=== PATIENT | female | born 1965 | race Caucasian/White ===

== ENCOUNTER 2022-04-22 07:52 | Outpatient (REF) | payer OTHER, SELFPAY ==
[2022-04-22 12:24] LABS: Alanine Aminotransferase 19 U/L (0-31); Anion Gap 14 (12-20); Aspartate Amino Transferase 20 U/L (5-31); Blood Urea Nitrogen 17 mg/dL (9-16); Calcium 9.8 mg/dL (8.4-10.2); Carbon Dioxide 27 mmol/L (22-29); Chloride 103 mmol/L (96-108); Cholesterol 173 mg/dL; Estimated Glomerular Filt Rate > 60; Glucose Fasting 95 mg/dL (60-99); HDL Cholesterol 67 mg/dL; LDL Cholesterol Calculated 92 mg/dl; Sodium 140 mmol/L (135-145); Triglycerides 74 mg/dL
[2022-04-22 12:27] LABS: Vitamin D 25-OH Total 54.7 ng/mL (>30)
== END 2022-04-22 07:53 | disposition home or self-care (01) ==
LOC: HO.HMGCLDS 07:52
PROVIDERS: PCP Internal Medicine; Visit Provider Internal Medicine
DX: G25.81 Restless legs syndrome (principal); I10 Essential (primary) hypertension; N95.9 Unspecified menopausal and perimenopausal disorder; L40.50 Arthropathic psoriasis, unspecified
CPT/HCPCS: 36415; 80048; 80061; 82306; 84450; 84460

== ENCOUNTER 2023-04-15 08:43 | Outpatient (AMB) | payer OTHER, SELFPAY ==
--- NOTE | 2023-04-15 09:01 | A.OFFPC_ITS ---
Vital Signs 04/15/23 09:03 Height 5 ft 3 in Weight 153 lb 2 oz BMI 27.1 BP 130/82 Blood Pressure Location Lt brachial Position Sitting Pulse 71 Pulse Source Pulse Oximeter Pulse Oximetry (%) 97 Oxygen Delivery Method Room Air Intake Visit Reasons: Medication Follow Up Intake Note: pt is here to follow for her Lisinopril/htcz and her ropinirole pt would like to get her flu vaccine today Allergies No Known Allergies Allergy (Verified 04/16/23 02:37) Medication List - Last Reconciled 04/15/23 by Etelvina Waller MD adalimumab (Humira Pen) mg subcut cholecalciferol (vitamin D3) 50 mcg PO DAILY escitalopram oxalate 20 mg PO DAILY lisinopril-hydrochlorothiazide 20-12.5 mg 1 tab PO DAILY lorazepam mg PO meloxicam 7.5 mg PO BID multivitamin 1 tab PO DAILY ropinirole 4 mg PO BEDTIME Tobacco use date assessed: 04/15/23 Dental Screening Dental Screen Date: 04/15/23 Did you have a dental visit in the last 12 months?: Yes Did you have a dental problem in the last 6 months where you did not have access to dental care?: No Was dental information given to patient?: Patient has dentist HPI Medication Follow Up HPI Details 57-year-old lady here today for follow-u p on her hypertension and restless leg syndrome, currently controlled with lisinopril-HCTZ and ropinirole . She now sees a new children's service supervisor for her psoriasis and recently started on Humira from [employer], the latter not covered by insurance. She has been referred by her health coordinator, Dr. Vincent to a crew leader gluing at [facility], for evaluation of chronic pain in both feet mainly around her big toes, worse with walking. 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 She declined getting surgery at this point time, and would like to explore other treatment options. [facility] Medical History (Updated 04/15/23 @ 10:06 by Etelvina Waller MD) Pes planus of both feet Arthritis of first MTP joint Pain in joints of both feet Depression, major, in remission Uterine fibroid Polyarthralgia Osteoarthritis Rosacea Restless leg syndrome Essential hypertension Arthritis with psoriasis Surgical History H/O colonoscopy Status post embolization of uterine artery History of salpingectomy Family History Father HTN (hypertension) Myocardial infarction Stroke CVD (cardiovascular disease) Mother Depression HTN (hypertension) Hyperlipidemia Mental health disorder Sister HTN (hypertension) Depression Maternal Grandmother Diabetes mellitus Maternal Grandmother Cancer of prostate Paternal Grandfather Cancer of prostate Paternal Aunt CHF (congestive heart failure) Daughter No problems noted. Social History Housing: Apartment Alcohol intake: current Patient Tobacco Use Status: Former Tobacco user Years Smoked: 3 yrs e-Cigarette/Vaping Use: Never Used Current occupational status: employed Cognitive needs: No Hearing needs: No Vision needs: No Questionnaire PHQ-9 Over the last 2 weeks, how often have you been bothered by any of the following problems? 1. Little interest or pleasure in doing things: more than half the days 2. Feeling down, depressed, or hopeless: more than half the days 3. Trouble falling or staying asleep, or sleeping too much: more than half the days 4. Feeling tired or having little energy: more than half the days 5. Poor appetite or overeating: more than half the days 6. Feeling bad about yourself - or that you are a failure or have let yourself or your family down: more than half the days 7. Trouble concentrating on things, such as reading the newspaper or watching television: several days 8. Moving or speaking so slowly that other people could have noticed. Or the opposite - being so fidgety or restless that you have been moving around a lot more than usual: several days 9. 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 Ignacio Lee, Jolene Landon, Jace Wakefield and colleagues, with an educational jim from [employer]. Thrive Questionnaire Date Thrive assessed: 04/15/23 I am a: Patient What is your living situation today?: I have a steady place to live Within the past 12 months, did the food you bought not last and you didn't have the money to get more?: Never true Within the past 12 months, did you worry whether your food would run out before you got money to buy more?: Never true Do you have trouble paying for medicines?: No Do you have trouble getting transportation to medical appointments?: No Do you have trouble paying your heating and electricity bill?: No Do you have trouble taking care of your child, family member or friend?: No Do you have trouble with day-to-day activities such as bathing, preparing meals, shopping, managing finances, etc.?: No Are you currently unemployed and looking for a job?: No Are you interested in more education?: No AUDIT C Alcohol Use Questionnaire (AUDIT-C) 1. How often do you have a drink containing alcohol?: 2-4 times a month 2. How many drinks containing alcohol do you have on a typical day when you are drinking?: 1 or 2 3. How often do you have six or more drinks on one occasion?: Never Total Score: 2 BLESSING-7 AMB Questionnaire BLESSING-7 Date BLESSING - 7 assessed: 04/15/23 Feeling nervous, anxious, or on edge: 2 = More than half the days Not being able to stop or control worryin = More than half the days Worrying too much about different things: 2 = More than half the days Trouble relaxin = Nearly every day Being so restless that it is hard to sit still: 1 = Several days Becoming easily annoyed or irritable: 1 = Several days Feeling afraid as if something awful might happen: 2 = More than half the days Total BLESSING-7 score (0-4 normal; 5-9 mild; 10-14 moderate; 15-21 severe): 13 Source: Developed by Drs. Ignacio Lee, Jolene Landon, Jace Wakefield and colleagues, with an educational jim from [employer]. BLESSING-7 Assessment Billing BLESSING-7 Assessment Tool: BLESSING-7 Assessment 05871 Review of Systems Const Denies fever(s) Eyes Denies change in vision ENT Reports no additional complaints Card Denies chest pain, Denies lightheadedness and Denies dyspnea Resp Denies cough, Denies dyspnea and Denies wheezing GI Denies abdominal pain, Denies change in bowel habits and Denies heartburn Denies urinary frequency, Denies dysuria and Denies urinary urgency Musc Reports as per HPI Skin/Breast Denies rash Neuro Reports no additional complaints Psych Reports as per HPI Suhas/Lymph Denies easy bruising Aller/Immun Denies seasonal rhinorrhea and Denies wheezing Physical exam (Primary Care) Vital Signs: Last Vital Signs Pulse 71 04/15/23 09:03 BP 130/82 04/15/23 09:03 Pulse Ox 97 04/15/23 09:03 Oxygen Delivery Method Room Air 04/15/23 09:03 BMI result Body Mass Index 27.1 Tobacco/Smoking Status: Tobacco use Status Tobacco use date assessed 04/15/23 04/15/23 09:10 Patient Tobacco Use Status Former Tobacco user 04/15/23 09:02 e-Cigarette/Vaping Use Never Used 04/15/23 09:02 PHQ-9: PHQ-9 Score PHQ-9: Total score 14 04/15/23 10:14 Depression Screening Interpretation: Positive Depression Screening Follow-up: Existing condition, 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 (Currently sees a psychiatrist and her therapist regularly) Thrive Assessment: Date of Thrive Assessment Date Thrive assessed 04/15/23 04/15/23 09:16 Const Other: Alert oriented x3, in no acute cardiorespiratory distress, normal gait Orientation/consciousness: patient oriented x3 HENMT Head: Yes normocephalic Ears: external ears normal, TM's normal bilaterally and EAC's normal General nose exam: Normal external nose present Face and sinus: Yes face symmetric Mouth: Normal oral and palatal mucosa present, oropharynx normal and moist mucous membranes Eyes General: appearance normal, both eyes and all related structures Neck Neck: Yes full ROM, Yes no lymphadenopathy and Yes supple Resp Effort & Inspection: normal respiratory effort and able to speak in complete sentences Auscultation: clear to auscultation bilaterally Cardio Rate: regular rate Rhythm: regular rhythm Heart sounds: S1 normal heart sound present and S2 normal heart sound present GI Inspection: Yes normal to inspection Palpation (GI): Soft to palpation, nontender, no guarding and no masses Auscultation: normal bowel sounds General: Yes no CVA tenderness Back/Spine/Pelvis Back: no CVA tenderness and No back tenderness Skin General skin exam: no rashes or lesions noted Neuro General: patient oriented x3, gait normal, moves all extremities, Normal light touch and pain sensation and no focal motor deficits Extrem Other: Full range of motion in all joints, no gross bone deformity or joint swelling seen slight tenderness on palpation medial malleolus and on dorsal aspect of right foot, 2+ dorsalis pedis pulse and posterior tibial pulse bilaterally, bilateral pes planus General: Yes no clubbing, cyanosis or edema, Yes no calf tenderness and Yes normal gait Psych Appearance: grossly normal and well kempt Mental Status: mental status grossly normal Speech and movement: Normal speech and movement present Attitude: cooperative Office Procedures Flu Questionnaire Does the patient have a severe egg allergy?: No Does the patient have severe life threatening allergies?: No Does the patient have a fever or illness today?: No Has the patient ever had Guillain-[place] Syndrome?: No Has the patient ever had any past reaction to a flu shot?: No Immunizations flu vacc [id number] 6mos up(PF) 60 mcg(15 mcgx4)/0.5 mL IM syringe Performing Provider: Etelvina Waller MD [place] [facility] Administered by: Jamee Sanchez CMA on 04/15/23 10:14 Dose Route Admin Location Dispensed Lot Number Expiration Date [facility] Rehab Director Occupational Therapist 0.5 mL IM Left Deltoid 0.5 mL [id number] 12/21/23 97269-591-09 [employer] VIS Given Date VIS Provided VIS Publication Date 04/15/23 Single Vaccine 21 Eligibility Eligibility Date Funding Source Not [facility] Eligible 04/15/23 Private Assessment and Plan Assessment & Plan (1) Essential hypertension: Code(s): I10 - Essential (primary) hypertension Plan: Blood pressure at goal of less than 130/80. Continue with syncopal-HCTZ 20-12.5 mg tablet taken daily Reinforced importance of following a low sodium diet, getting regular exercise, and lowering stress levels. (2) Restless leg syndrome: Code(s): G25.81 - Restless legs syndrome Plan: Controlled with ropinirole 4 mg at bedtime, refill sent (3) Arthritis of first MTP joint: Code(s): M19.079 - Primary osteoarthritis, unspecified ankle and foot Plan: Will refer to physical therapy for further evaluation and management (4) Pes planus of both feet: Code(s): M21.41 - Flat foot [pes planus] (acquired), right foot; M21.42 - Flat foot [pes planus] (acquired), left foot Plan: Advised to keep appointment to get custom orthotics fitted for both feet. (5) Arthritis with psoriasis: Code(s): L40.50 - Arthropathic psoriasis, unspecified Plan: Sees Rheumatology, Dr. Vincent, who recently started her on Humira Orders: Orders Influenza [id number] Immunization 04/15/23 Z23 - Encounter for immunization PT Evaluation and Treatment 04/15/23 M19.079 - Primary osteoarthritis, unspecified ankle and foot, M21.41 - Flat foot [pes planus] (acquired), right foot, M21.42 - Flat foot [pes planus] (acquired), left foot Medications: Refilled lisinopril-hydrochlorothiazide 20-12.5 mg Schedule next PCP appt for future refills 1 tab PO DAILY 90 tabs 4RF ropinirole 4 mg PO BEDTIME 90 tabs 3RF Coding Level of Care Code Est Pt Level 4 (32270) Diagnoses Essential hypertension I10 Restless leg syndrome G25.81 Arthritis of first MTP joint M19.079 Pes planus of both feet M21.41; M21.42 Arthritis with psoriasis L40.50 Additional Codes BLESSING-7 Assessment Billing - BLESSING-7 Assessment Tool: BLESSING-7 Assessment 33587 ([id number])
[2023-04-15 09:03] VITALS: BP 130/82; PULSE 71; O2SAT 97; BMI 27.1
== END 2023-04-15 10:35 | disposition home or self-care (01) ==
PROVIDERS: PCP Internal Medicine; Visit Provider Internal Medicine
DX: Z23 Encounter for immunization (principal)
CPT/HCPCS: 90471; 90686; 99214

== ENCOUNTER 2023-07-15 12:04 | Outpatient (AMB) | payer OTHER, SELFPAY ==
--- NOTE | 2023-07-15 12:07 | MHC.OFFWIV ---
Intake Vital Signs 07/15/23 12:08 Height 5 ft 3 in BP 122/80 Blood Pressure Location Lt brachial Position Sitting Pulse 67 Pulse Source Pulse Oximeter Temp 97.9 F Temp Source Oral Pulse Oximetry (%) 98 Oxygen Delivery Method Room Air Intake Visit Reasons: EP RT injured knee lifting Intake Note: pt is here for c.o right injured knee, due to lifting Patient Tobacco Use Status: Former Tobacco user Allergies No Known Allergies Allergy (Verified 07/15/23 12:11) Do you need a note to return to daycare/school/sports/work: Yes HPI HPI Comments History of Present Illness Details Patient is a 57-year-old female in today for a sick visit. She has a past medical history significant for psoriatic arthritis, osteoarthritis, and essential hypertension. Patient is a chief complaint of right knee pain times 13 days. She states that she was carrying groceries up in down the stairs and noticed the pain developed after that. She denies cracking or popping. She has taken meloxicam with some relief. She states the pain has gotten slightly better since the incident 13 days ago. She denies tingling, numbness, chest pain, shortness a breath. [facility] Medical History Pes planus of both feet Arthritis of first MTP joint Pain in joints of both feet Depression, major, in remission Uterine fibroid Polyarthralgia Osteoarthritis Rosacea Restless leg syndrome Essential hypertension Arthritis with psoriasis Surgical History H/O colonoscopy Status post embolization of uterine artery History of salpingectomy Family History Father HTN (hypertension) Myocardial infarction Stroke CVD (cardiovascular disease) Mother Depression HTN (hypertension) Hyperlipidemia Mental health disorder Sister HTN (hypertension) Depression Maternal Grandmother Diabetes mellitus Maternal Grandmother Cancer of prostate Paternal Grandfather Cancer of prostate Paternal Aunt CHF (congestive heart failure) Daughter No problems noted. Social History Housing: Apartment Alcohol intake: current Patient Tobacco Use Status: Former Tobacco user Years Smoked: 3 yrs e-Cigarette/Vaping Use: Never Used Current occupational status: employed Cognitive needs: No Hearing needs: No Vision needs: No Review of Systems Const All systems reviewed & are unremarkable except as noted in HPI and below Musc Reports arthralgias (Right knee) Physical Exam Vital Signs: Last Vital Signs Temp 97.9 F 07/15/23 12:08 Pulse 67 07/15/23 12:08 BP 122/80 07/15/23 12:08 Pulse Ox 98 07/15/23 12:08 Oxygen Delivery Method Room Air 07/15/23 12:08 No vital signs reviewed stable Const Other: CVS: Normal heart rate and rhythm.? Pulses normal.? Respiratory: No respiratory distress.? Breath sounds normal.? Skin: Skin warm and dry.? Normal skin color.? Normal skin turgor.? Extremities: No lower extremity edema.? No calf ttp. 5/5 strength to bilateral upper and lower extremities. No cracking or crepitus. Some point tenderness to the medial and lateral aspect of the knee. No Obvious deformity. Negative sorin test. Back: No midline tenderness, no C-spine tenderness, full range of motion, no CVA tenderness bilaterally Neuro: Oriented X 3.? No motor deficit.? No sensory deficit. CN 2-12 intact Results Reviewed Results Reviewed: Will call patient with x-ray results. Assessment & Plan Assessment & Plan (1) Right knee pain: Code(s): M25.561 - Pain in right knee Qualifiers: Chronicity: acute Qualified Code(s): M25.561 - Pain in right knee Plan: Patient had in office x-ray initial reading negative for fracture. Patient will be fit with supportive knee device in office today. Patient has been advised to rest the affected limb, she can take Tylenol in addition to the meloxicam she is already prescribed. She has been educated on signs of worsening symptoms when to report back to the walk-in or when to report to the ER. Plan Take your medications as prescribed. If you were prescribed antibiotics today, it is important that you take your medication to their entirety, do not skip any doses, do not finish them early. Follow-up with your primary care provider this week. Return to the emergency department with new or worsening symptoms. Such as fevers, chills, chest pain, shortness of breath, nausea, vomiting, dizziness, headache, vision changes, lethargy In case of emergency call 911 Patient Instructions: Follow-up with PCP Coding Level of Care Code Est Pt Level 3 (68092) Diagnoses Acute pain of right knee M25.561 Chronicity: acute Time Spent (min) 35
[2023-07-15 12:08] VITALS: BP 122/80; PULSE 67; TEMP 36.6; O2SAT 98
== END 2023-07-15 13:31 | disposition home or self-care (01) ==
PROVIDERS: PCP Internal Medicine; Visit Provider Nurse Practitioner Primary Care
DX: M25.561 Pain in right knee (principal)
CPT/HCPCS: 99213

== ENCOUNTER 2023-07-15 12:32 | Outpatient (REF) | payer OTHER, SELFPAY ==
--- NOTE | ~2023-07-15 | XR_ITS ---
EXAMINATION: XR KNEE, RIGHT CLINICAL INFORMATION: Reason for Exam M25.561 - Pain in right knee COMPARISON: None TECHNIQUE: 4 views of the knee FINDINGS: No acute fracture or dislocation. Joint spaces are maintained. No joint effusion. Soft tissues are unremarkable. XR/XR knee RT 4V IMPRESSION: * No acute osseous abnormality. * Joint spaces are maintained without significant degenerative change.
== END 2023-07-15 12:33 | disposition home or self-care (01) ==
LOC: HO.HMGCX 12:32
PROVIDERS: PCP Internal Medicine; Visit Provider Nurse Practitioner Primary Care
DX: M25.561 Pain in right knee (principal)
CPT/HCPCS: 73564

== ENCOUNTER 2024-01-27 09:15 | Outpatient (AMB) | payer OTHER, SELFPAY ==
--- NOTE | 2024-01-27 09:19 | A.OFFPC_ITS ---
Vital Signs 01/27/24 09:45 Height 5 ft 3 in Weight 162 lb BMI 28.7 BP 134/70 Blood Pressure Location Lt brachial Position Sitting Pulse 59 Pulse Source Pulse Oximeter Pulse Oximetry (%) 97 Oxygen Delivery Method Room Air Intake Visit Reasons: PE jose 08/12 Intake Note: Pt is here today for her PE: mammogram 01/02/22, papsmear 02/01/22, colonoscopy 05/27/18 Allergies No Known Allergies Allergy (Verified 01/27/24 10:12) Medication List - Last Reconciled 01/27/24 by Etelvina Waller MD cholecalciferol (vitamin D3) 50 mcg PO DAILY escitalopram oxalate mg PO DAILY lisinopril-hydrochlorothiazide 20-12.5 mg 1 tab PO DAILY meloxicam 7.5 mg PO BID multivitamin 1 tab PO DAILY ropinirole 4 mg PO BEDTIME ustekinumab (Stelara) mg subcut Tobacco use date assessed: 01/27/24 Dental Screening Dental Screen Date: 01/27/24 Did you have a dental visit in the last 12 months?: Yes Did you have a dental problem in the last 6 months where you did not have access to dental care?: No Was dental information given to patient?: Patient has dentist HPI PE jose 08/12 HPI Details 58-year-old lady here today for her phys ical exam.. She is up-to-date with her breast cancer screening, done this year at [facility], up-to-date with her cervical cancer screws weaning, done this year at [facility] as well, and is up-to-date with her colon cancer screening with last colonoscopy done 05/27/18 with removal only of hyperplastic polyp, repeat due again in 2027. She has psoriasis and osteoarthritis currently followed by her rheumatology and on Stelara and meloxicam which has been helping. She takes ropinirole for restless leg syndrome which also has been helping and takes lisinopril hydrochlorothiazide for her hypertension, with blood pressure well controlled. She currently sees Psychiatry and therapist at [facility] for her depression currently stable and controlled on escitalopram 10 mg daily [facility] Medical History Pes planus of both feet Arthritis of first MTP joint Pain in joints of both feet Depression, major, in remission Uterine fibroid Polyarthralgia Osteoarthritis Rosacea Restless leg syndrome Essential hypertension Arthritis with psoriasis Surgical History H/O colonoscopy Status post embolization of uterine artery History of salpingectomy Family History Father HTN (hypertension) Myocardial infarction Stroke CVD (cardiovascular disease) Mother Depression HTN (hypertension) Hyperlipidemia Mental health disorder Sister HTN (hypertension) Depression Maternal Grandmother Diabetes mellitus Maternal Grandmother Cancer of prostate Paternal Grandfather Cancer of prostate Paternal Aunt CHF (congestive heart failure) Daughter No problems noted. Social History Housing: Apartment Alcohol intake: current Patient Tobacco Use Status: Former Tobacco user Years Smoked: 3 yrs e-Cigarette/Vaping Use: Never Used Current occupational status: employed Cognitive needs: No Hearing needs: No Vision needs: No Female Reproductive History Menstrual Menopause type: natural Questionnaire PHQ-9 Over the last 2 weeks, how often have you been bothered by any of the following problems? 1. Little interest or pleasure in doing things: not at all 2. Feeling down, depressed, or hopeless: not at all 3. Trouble falling or staying asleep, or sleeping too much: not at all 4. Feeling tired or having little energy: not at all 5. Poor appetite or overeating: not at all 6. Feeling bad about yourself - or that you are a failure or have let yourself or your family down: not at all 7. Trouble concentrating on things, such as reading the newspaper or watching television: not at all 8. Moving or speaking so slowly that other people could have noticed. Or the opposite - being so fidgety or restless that you have been moving around a lot more than usual: not at all 9. Thoughts that you would be better off or of hurting yourself in some way: not at all Total score: 0 Depression Screening Interpretation: Negative (Controlled on escitalopram, followed by Psychiatry at [facility]) Depression Screening Done: Yes 43918 - PHQ-9 Billing: Yes Source: Developed by Drs. Ignacio Lee, Jolene B.Jace Michelle and colleagues, with an educational jim from [employer] Thrive Questionnaire Date Thrive assessed: 01/27/24 I am a: Patient What is your living situation today?: I have a steady place to live Within the past 12 months, did the food you bought not last and you didn't have the money to get more?: Never true Within the past 12 months, did you worry whether your food would run out before you got money to buy more?: Never true Do you have trouble paying for medicines?: No Do you have trouble getting transportation to medical appointments?: No Do you have trouble paying your heating and electricity bill?: No Do you have trouble taking care of your child, family member or friend?: No Do you have trouble with day-to-day activities such as bathing, preparing meals, shopping, managing finances, etc.?: No Are you currently unemployed and looking for a job?: No Are you interested in more education?: No Please select the resources that you would like help with: Housing/Nursing Home Currently or been in a relationship where the following occur: No concerns reported THRIVE Score: 0 AUDIT C Alcohol Use Questionnaire (AUDIT-C) 1. How often do you have a drink containing alcohol?: 2-4 times a month 2. How many drinks containing alcohol do you have on a typical day when you are drinking?: 1 or 2 3. How often do you have six or more drinks on one occasion?: Never Total Score: 2 BLESSING-7 AMB Questionnaire BLESSING-7 Date BLESSING - 7 assessed: 01/27/24 Feeling nervous, anxious, or on edge: 0 = Not at all Not being able to stop or control worryin = Not at all Worrying too much about different things: 0 = Not at all Trouble relaxin = Not at all Being so restless that it is hard to sit still: 0 = Not at all Becoming easily annoyed or irritable: 0 = Not at all Feeling afraid as if something awful might happen: 0 = Not at all Total BLESSING-7 score (0-4 normal; 5-9 mild; 10-14 moderate; 15-21 severe): 0 Source: Developed by Drs. Ignacio Lee, Jace Chen and colleagues, with an educational jim from [employer] BLESSING-7 Assessment Billing BLESSING-7 Assessment Tool: BLESSING-7 Assessment 93288 Review of Systems Const Denies fever(s) Eyes Details: Up-to-date with her eye exam, sees pediatric speech language pathologist in [place] on [facility] Denies change in vision ENT Reports no additional complaints Card Denies chest pain, Denies lightheadedness and Denies dyspnea Resp Denies cough, Denies dyspnea and Denies wheezing GI Denies abdominal pain, Denies change in bowel habits and Denies heartburn Denies urinary frequency, Denies dysuria and Denies urinary urgency Musc Denies arthralgias, Denies joint swelling, Denies muscle weakness, Denies numbness and Reports stiffness Skin/Breast Denies rash Neuro Reports no additional complaints and Denies numbness Psych Denies anxiety and Denies depression (In remission) Endo Reports no additional complaints Suhas/Lymph Denies easy bruising Aller/Immun Denies seasonal rhinorrhea and Denies wheezing Physical exam (Primary Care) Vital Signs: Last Vital Signs Pulse 59 01/27/24 09:45 BP 134/70 01/27/24 09:45 Pulse Ox 97 01/27/24 09:45 Oxygen Delivery Method Room Air 01/27/24 09:45 BMI result Body Mass Index 28.7 Tobacco/Smoking Status: Tobacco use Status Tobacco use date assessed 01/27/24 01/27/24 09:54 Patient Tobacco Use Status Former Tobacco user 01/27/24 09:21 e-Cigarette/Vaping Use Never Used 01/27/24 09:21 PHQ-9: PHQ-9 Score PHQ-9: Total score 0 01/27/24 09:54 Depression Screening Interpretation: Negative (Controlled on escitalopram, followed by Psychiatry at [facility]) Thrive Assessment: Date of Thrive Assessment Date Thrive assessed 01/27/24 01/27/24 09:54 Currently or been in a relationship where the following occur: No concerns reported Advance Care Planning discussion: Completed/Scanned Date of discussion: 01/27/24 Who was present: Patient Forms completed: Health Care Proxy Time spent: 16-45 minutes Actual minutes spent: 15 Const Other: Alert oriented x3, in no acute cardiorespiratory distress, normal gait Orientation/consciousness: patient oriented x3 HENMT Head: Yes normocephalic Ears: external ears normal, TM's normal bilaterally and EAC's normal General nose exam: Normal external nose present Face and sinus: Yes face symmetric Mouth: Normal oral and palatal mucosa present, oropharynx normal and moist mucous membranes Eyes General: appearance normal, both eyes and all related structures Neck Neck: Yes full ROM, Yes no lymphadenopathy and Yes supple Chest Breast/axilla palpation: normal palpation of the breasts Resp Effort & Inspection: normal respiratory effort and able to speak in complete sentences Auscultation: clear to auscultation bilaterally Cardio Rate: regular rate Rhythm: regular rhythm Heart sounds: S1 normal heart sound present and S2 normal heart sound present GI Inspection: Yes normal to inspection Palpation (GI): Soft to palpation, nontender, no guarding and no masses Auscultation: normal bowel sounds General: Yes no CVA tenderness Back/Spine/Pelvis Back: no CVA tenderness and No back tenderness Skin General skin exam: no rashes or lesions noted Neuro General: patient oriented x3, gait normal, moves all extremities, Normal light touch and pain sensation and no focal motor deficits Extrem Other: Full range of motion in all joints, no gross bone deformity or joint swelling seen , 2+ dorsalis pedis pulse and posterior tibial pulse bilaterally, bilateral pes planus General: Yes no clubbing, cyanosis or edema, Yes no calf tenderness and Yes normal gait Psych Appearance: grossly normal and well kempt Mental Status: mental status grossly normal Speech and movement: Normal speech and movement present Attitude: cooperative Assessment and Plan Assessment & Plan (1) Annual visit for general adult medical examination with abnormal findings: Code(s): Z00.01 - Encounter for general adult medical examination with abnormal findings Plan: Will check appropriate labs. 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 Instructed to do self-breast exam, and continue with yearly mammogram, goes to [facility].. Up-to-date with her cervical cancer screening and her colonoscopy, due again in 2027. Has had COVID vaccines but does not want to get the booster, up-to-date with her flu shot and Tdap (2) Arthritis with psoriasis: Code(s): L40.50 - Arthropathic psoriasis, unspecified Plan: Currently followed by Rheumatology, currently on Stelara and meloxicam (3) Essential hypertension: Code(s): I10 - Essential (primary) hypertension Plan: Blood pressure at goal of less than 130/80. Continue with lisinopril HCTZ, basic metabolic panel ordered today. Reinforced importance of following a low sodium diet, getting regular exercise, and lowering stress levels. (4) Osteoarthritis: Code(s): M19.90 - Unspecified osteoarthritis, unspecified site Qualifiers: Osteoarthritis location: unspecified site Osteoarthritis type: primary Qualified Code(s): M19.91 - Primary osteoarthritis, unspecified site Plan: Takes meloxicam as needed (5) Depression, major, in remission: Code(s): F32.5 - Major depressive disorder, single episode, in full remission Plan: Stable and controlled on escitalopram 10 mg daily, followed by psychiatrist and therapist at [facility] (6) Encounter for counseling regarding advance directives: Code(s): Z71.89 - Other specified counseling Plan: Initiated the conversation about Advanced Directives. Advanced Directives help patients prepare for current and future decisions about their medical treatment and place of care. Discussed with patient that it is a process where a patients current condition and prognosis are reviewed, their wishes for information regarding their illness are elicited, and likely medical dilemmas are presented and options discussed. Healthcare proxy form completed today. The form can be amended as needed, reviewed yearly and make changes as needed Orders: Orders Alanine Aminotransferase Today F32.5 - Major depressive disorder, single episode, in full remission, I10 - Essential (primary) hypertension, L40.50 - Arthropathic psoriasis, unspecified, M19.90 - Unspecified osteoarthritis, unspecified site, Z71.89 - Other specified counseling, Z78.0 - Asymptomatic menopausal state Basic Metabolic Panel Fasting Today I10 - Essential (primary) hypertension, L40.50 - Arthropathic psoriasis, unspecified, M19.90 - Unspecified osteoarthritis, unspecified site, Z71.89 - Other specified counseling, Z78.0 - Asymptomatic menopausal state Aspartate Amino Transferase Today F32.5 - Major depressive disorder, single episode, in full remission, I10 - Essential (primary) hypertension, L40.50 - Arthropathic psoriasis, unspecified, M19.90 - Unspecified osteoarthritis, unspecified site, Z71.89 - Other specified counseling, Z78.0 - Asymptomatic menopausal state Lipid Panel Today F32.5 - Major depressive disorder, single episode, in full remission, I10 - Essential (primary) hypertension, L40.50 - Arthropathic psoriasis, unspecified, M19.90 - Unspecified osteoarthritis, unspecified site, Z71.89 - Other specified counseling, Z78.0 - Asymptomatic menopausal state Vitamin D 25-OH Total Today F32.5 - Major depressive disorder, single episode, in full remission, I10 - Essential (primary) hypertension, L40.50 - Arthropathic psoriasis, unspecified, M19.90 - Unspecified osteoarthritis, unspecified site, Z71.89 - Other specified counseling, Z78.0 - Asymptomatic menopausal state Medications: Refilled lisinopril-hydrochlorothiazide 20-12.5 mg Schedule next PCP appt for future refills 1 tab PO DAILY 90 tabs 4RF ropinirole 4 mg PO BEDTIME 90 tabs 3RF Coding Level of Care Code Est Pt Prev Care 40-64y(50074) Diagnoses Annual visit for general adult medical examination with abnormal findings Z0 0.01 Arthritis with psoriasis L40.50 Essential hypertension I10 Primary osteoarthritis, unspecified site M19.91 Osteoarthritis location: unspecified site Osteoarthritis type: primary Depression, major, in remission F32.5 Encounter for counseling regarding advance directives Z71.89 Additional Codes BLESSING-7 Assessment Billing - BLESSING-7 Assessment Tool: BLESSING-7 Assessment 84753 ([id number]) Vital Signs *Quality* - Advance Care Planning discussion: Completed/Scanned ([id number]) Vital Signs *Quality* - Time spent: 16-45 minutes ([id number])
[2024-01-27 09:45] VITALS: BP 134/70; PULSE 59; O2SAT 97; BMI 28.7
== END 2024-01-27 12:22 | disposition home or self-care (01) ==
PROVIDERS: PCP Internal Medicine; Visit Provider Internal Medicine
DX: Z00.00 Encounter for general adult medical examination without abnormal findings (principal); L40.50 Arthropathic psoriasis, unspecified; F32.5 Major depressive disorder, single episode, in full remission; I10 Essential (primary) hypertension; M19.91 Primary osteoarthritis, unspecified site; Z71.89 Other specified counseling
CPT/HCPCS: 1123F; 99396; 99497

== ENCOUNTER 2024-04-01 09:12 | Outpatient (REF) | payer OTHER, SELFPAY ==
[2024-04-01 11:04] LABS: Alanine Aminotransferase 19 U/L (0-31); Anion Gap 11 (12-20); Aspartate Amino Transferase 19 U/L (5-31); Blood Urea Nitrogen 14 mg/dL (9-16); Calcium 10.2 mg/dL (8.4-10.2); Carbon Dioxide 29 mmol/L (22-29); Chloride 104 mmol/L (96-108); Cholesterol 143 mg/dL (<200); Estimated Glomerular Filt Rate > 60; Glucose Fasting 95 mg/dL (60-99); HDL Cholesterol 52 mg/dL (>40); LDL Cholesterol Calculated 80 mg/dL (<100); Potassium 4.5 mmol/L (3.3-5.1); Sodium 139 mmol/L (135-145); Triglycerides 55 mg/dL (<150); Vitamin D 25-OH Total 76.7 ng/mL (>30)
== END 2024-04-01 09:13 | disposition home or self-care (01) ==
LOC: HO.HMGCLDS 09:12
PROVIDERS: PCP Internal Medicine; Visit Provider Internal Medicine
DX: F32.5 Major depressive disorder, single episode, in full remission (principal); M19.90 Unspecified osteoarthritis, unspecified site; I10 Essential (primary) hypertension; L40.50 Arthropathic psoriasis, unspecified; Z71.89 Other specified counseling; Z78.0 Asymptomatic menopausal state
CPT/HCPCS: 36415; 80048; 80061; 82306; 84450; 84460

== ENCOUNTER 2025-03-08 09:23 | Outpatient (AMB) | payer OTHER, SELFPAY ==
--- NOTE | 2025-03-08 10:07 | A.OFFPC_ITS ---
Vital Signs 03/08/25 10:23 Height 5 ft 3 in Weight 151 lb BMI 26.7 BP 120/80 Blood Pressure Location Lt brachial Position Sitting Respiration 16 Pulse 72 Pulse Source Pulse Oximeter Temp 98.1 F Temp Source Oral Pulse Oximetry (%) 98 Oxygen Delivery Method Room Air Intake Visit Reasons: Annual PE Intake Note: Pt is here today for her PE: last mammogram 03/24/24, papsmear 02/01/22, colonoscopy 06/06/18 Allergies No Known Allergies Allergy (Verified 03/08/25 10:29) Medication List - Last Reconciled 03/08/25 by Etelvina Waller MD cholecalciferol (vitamin D3) 50 mcg PO DAILY escitalopram oxalate 15 mg PO DAILY guselkumab (Tremfya) 100 mg subcut Q8W lisinopril-hydrochlorothiazide 20-12.5 mg 1 tab PO DAILY lorazepam (Ativan) 0.5 mg PO BEDTIME PRN meloxicam 7.5 mg PO BID multivitamin 1 tab PO DAILY ropinirole 4 mg PO BEDTIME Tobacco use date assessed: 03/08/25 Dental Screening Dental Screen Date: 03/08/25 Did you have a dental visit in the last 12 months?: Yes Did you have a dental problem in the last 6 months where you did not have access to dental care?: No Was dental information given to patient?: Patient has dentist HPI Annual PE HPI Details 59-year-old lady with history depression , currently followed by psychiatry, has osteoarthritis, rosacea, restless leg syndrome, hypertension and psoriatic arthritis, here today for physical exa up-to-date with her breast cseeing [facility] in [place] where they did a Pap with normal findings, ancer screening with last mammogram 03/24/24 showing negative fin dings. She goes to [facility] for her cervical cancer screening with last papsmear done 02/01/22, now . Up-to-date with her colon cancer screening with last colonoscopy done by Dr. Moy 06/06/18, with removal of hyperplastic polyp, repeat due again in 2027. [facility] Medical History (Updated 03/08/25 @ 10:55 by Etelvina Waller MD) Depression Pes planus of both feet Arthritis of first MTP joint Pain in joints of both feet Depression, major, in remission Uterine fibroid Polyarthralgia Osteoarthritis Rosacea Restless leg syndrome Essential hypertension Arthritis with psoriasis Surgical History H/O colonoscopy Status post embolization of uterine artery History of salpingectomy Family History Father HTN (hypertension) Myocardial infarction Stroke CVD (cardiovascular disease) Mother Depression HTN (hypertension) Hyperlipidemia Mental health disorder Sister HTN (hypertension) Depression Maternal Grandmother Diabetes mellitus Maternal Grandmother Cancer of prostate Paternal Grandfather Cancer of prostate Paternal Aunt CHF (congestive heart failure) Daughter No problems noted. Social History Housing: Apartment Alcohol intake: current Patient Tobacco Use Status: Former Tobacco user Years Smoked: 3 yrs e-Cigarette/Vaping Use: Never Used Current occupational status: employed Cognitive needs: No Hearing needs: No Vision needs: No Female Reproductive History Menstrual Other: Goes to [facility] in [place] for her routine Pap and pelvic exam, done this year. Due for her screening mammogram, goes to [facility], patient states she will schedule an appointment Questionnaire PHQ-9 Over the last 2 weeks, how often have you been bothered by any of the following problems? 1. Little interest or pleasure in doing things: nearly every day 2. Feeling down, depressed, or hopeless: nearly every day 3. Trouble falling or staying asleep, or sleeping too much: nearly every day 4. Feeling tired or having little energy: nearly every day 5. Poor appetite or overeating: nearly every day 6. Feeling bad about yourself - or that you are a failure or have let yourself or your family down: nearly every day 7. Trouble concentrating on things, such as reading the newspaper or watching television: nearly every day 8. Moving or speaking so slowly that other people could have noticed. Or the opposite - being so fidgety or restless that you have been moving around a lot more than usual: several days 9. Thoughts that you would be better off or of hurting yourself in some way: not at all Total score: 22 Depression Screening Interpretation: Positive (Sees psychiatrist, Lew Kaur at [facility], has an appointment to see him next week) Depression Screening Follow-up: Existing condition, 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 Depression Screening Done: Yes 31027 - PHQ-9 Billing: Yes Source: Developed by Drs. Ignacio Lee, Jolene Landon, Jace Wakefield and colleagues, with an educational jim from [employer]. Thrive Questionnaire Date Thrive assessed: 03/02/25 I am a: Patient What is your living situation today?: I have a steady place to live Within the past 12 months, did the food you bought not last and you didn't have the money to get more?: Never true Within the past 12 months, did you worry whether your food would run out before you got money to buy more?: Never true Do you have trouble paying for medicines?: No Do you have trouble getting transportation to medical appointments?: No Do you have trouble paying your heating and electricity bill?: No Do you have trouble taking care of your child, family member or friend?: No Do you have trouble with day-to-day activities such as bathing, preparing meals, shopping, managing finances, etc.?: No Are you currently unemployed and looking for a job?: No Are you interested in more education?: No Please select the resources that you would like help with: None Currently or been in a relationship where the following occur: No concerns reported THRIVE Score: 0 AUDIT C Alcohol Use Questionnaire (AUDIT-C) 1. How often do you have a drink containing alcohol?: Monthly or less 2. How many drinks containing alcohol do you have on a typical day when you are drinking?: 1 or 2 3. How often do you have six or more drinks on one occasion?: Never Total Score: 1 Score Reviewed/Action Taken: Yes BLESSING-7 AMB Questionnaire BLESSING-7 Date BLESSING - 7 assessed: 03/08/25 Feeling nervous, anxious, or on edge: 1 = Several days Not being able to stop or control worryin = Several days Worrying too much about different things: 1 = Several days Trouble relaxin = Several days Being so restless that it is hard to sit still: 0 = Not at all Becoming easily annoyed or irritable: 0 = Not at all Feeling afraid as if something awful might happen: 0 = Not at all Total BLESSING-7 score (0-4 normal; 5-9 mild; 10-14 moderate; 15-21 severe): 4 Source: Developed by Drs. Ignacio Lee, Jolene Landon, Jace Wakefield and colleagues, with an educational jim from [employer]. BLESSING-7 Assessment Billing BLESSING-7 Assessment Tool: BLESSING-7 Assessment 01756 Review of Systems Const Denies fever(s) Eyes Details: Up-to-date with eye exam, [facility] [place], Denies change in vision ENT Details: Gets dental cleaning every six-months Reports no additional complaints Card Denies chest pain, Denies lightheadedness and Denies dyspnea Resp Denies cough, Denies dyspnea and Denies wheezing GI Denies abdominal pain, Denies change in bowel habits and Denies heartburn Denies urinary frequency, Denies dysuria and Denies urinary urgency Musc Denies arthralgias, Denies joint swelling, Denies muscle weakness, Denies numbness and Reports stiffness Skin/Breast Denies rash Neuro Reports no additional complaints and Denies numbness Psych Reports as per HPI Endo Reports no additional complaints Suhas/Lymph Denies easy bruising Aller/Immun Denies seasonal rhinorrhea and Denies wheezing Physical exam (Primary Care) Vital Signs: Last Vital Signs Temp 98.1 F 03/08/25 10:23 Pulse 72 03/08/25 10:23 Resp 16 03/08/25 10:23 BP 120/80 03/08/25 10:23 Pulse Ox 98 03/08/25 10:23 Oxygen Delivery Method Room Air 03/08/25 10:23 BMI result Body Mass Index 26.7 Tobacco/Smoking Status: Tobacco use Status Tobacco use date assessed 03/08/25 03/08/25 10:09 Patient Tobacco Use Status Former Tobacco user 03/08/25 10:09 e-Cigarette/Vaping Use Never Used 03/08/25 10:09 PHQ-9: PHQ-9 Score PHQ-9: Total score 22 03/08/25 10:53 Depression Screening Interpretation: Positive (Sees psychiatrist, Lew Kaur at [facility], has an appointment to see him next week) Depression Screening Follow-up: Existing condition, 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 Thrive Assessment: Date of Thrive Assessment Date Thrive assessed 03/02/25 03/08/25 10:09 Currently or been in a relationship where the following occur: No concerns reported Const Other: Alert oriented x3, in no acute cardiorespiratory distress, normal gait HENWV Head: Yes normocephalic Ears: external ears normal, TM's normal bilaterally and EAC's normal General nose exam: Normal external nose present Face and sinus: Yes face symmetric Mouth: Normal oral and palatal mucosa present, oropharynx normal and moist mucous membranes Eyes General: appearance normal, both eyes and all related structures Neck Neck: Yes full ROM, Yes no lymphadenopathy and Yes supple Chest Breast/axilla palpation: normal palpation of the breasts Resp Effort & Inspection: normal respiratory effort and able to speak in complete sentences Auscultation: clear to auscultation bilaterally Cardio Rate: regular rate Rhythm: regular rhythm Heart sounds: S1 normal heart sound present and S2 normal heart sound present GI Inspection: Yes normal to inspection Palpation (GI): Soft to palpation, nontender, no guarding and no masses Auscultation: normal bowel sounds General: Yes no CVA tenderness Back/Spine/Pelvis Back: no CVA tenderness and No back tenderness Skin General skin exam: no rashes or lesions noted Neuro General: gait normal, moves all extremities, Normal light touch and pain sensation and no focal motor deficits Extrem Other: Full range of motion in all joints, no gross bone deformity or joint swelling seen , 2+ dorsalis pedis pulse and posterior tibial pulse bilaterally, bilateral pes planus General: Yes normal gait Psych Appearance: grossly normal and well kempt Mental Status: mental status grossly normal Speech and movement: Normal speech and movement present Affect: Sad affect present Attitude: cooperative Office Procedures Flu Questionnaire Does the patient have a severe egg allergy?: No Does the patient have severe life threatening allergies?: No Does the patient have a fever or illness today?: No Has the patient ever had Guillain-[place] Syndrome?: No Has the patient ever had any past reaction to a flu shot?: No Immunizations Fluarix [id number] (PF) 45 mcg (15 mcg x 3)/0.5 mL IM syringe Performing Provider: Etelvina Waller MD Performing Location: [facility] Administered by: Chastity Sprague CMA on 03/08/25 11:18 Dose Route Admin Location Dispensed Lot Number Expiration Date [facility] First Coat Sander 0.5 mL IM Right Deltoid 0.5 mL [id number] 12/20/25 [id number] QPSoftware VIS Given Date VIS Provided VIS Publication Date 03/08/25 Single Vaccine 24 Eligibility Eligibility Date Funding Source Not VF Eligible 03/08/25 Private Coding Level of Care Code Est Pt Prev Care 40-64y(65099) Diagnoses Essential hypertension I10 Depression F32.A Arthritis with psoriasis L40.50 Restless leg syndrome G25.81 Rosacea L71.9 Annual visit for general adult medical examination with abnormal findings Z00.01 Additional Codes BLESSING-7 Assessment Billing - BLESSING-7 Assessment Tool: BLESSING-7 Assessment 08991 ([id number]) PHQ-9 - 09001 - PHQ-9 Billing: Yes ([id number]) Assessment & Plan Assessment & Plan (1) Essential hypertension: Code(s): I10 - Essential (primary) hypertension Category: Medical (2) Depression: Code(s): F32.A - Depression, unspecified Category: Medical (3) Arthritis with psoriasis: Code(s): L40.50 - Arthropathic psoriasis, unspecified Category: Medical (4) Restless leg syndrome: Code(s): G25.81 - Restless legs syndrome Category: Medical (5) Rosacea: Code(s): L71.9 - Rosacea, unspecified Category: Medical (6) Annual visit for general adult medical examination with abnormal findings: Code(s): Z00.01 - Encounter for general adult medical examination with abnormal findings Orders: Orders Influenza [id number] Immunization Today Z23 - Encounter for immunization
[2025-03-08 10:23] VITALS: BP 120/80; PULSE 72; RESP 16; TEMP 36.7; O2SAT 98; BMI 26.7
--- OUTSIDE RECORDS SUMMARY | 2025-03-08 11:54 | XMS_ITS | Clinical Summary ---
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 Active rOPINIRole (REQUIP) 1 MG tablet Take 1 mg by mouth nightly at bedtime. Active cholecalciferol (VITAMIN D3) 2,000 unit tablet Take 2,000 Units by mouth daily. Active ustekinumab (STELARA) 45 mg/0.5 mL Syrg subcutaneous injection syringeIndication s:Psoriatic arthritis Inject 0.5 mL (45 mg total) under the skin once every 12 weeks. 0.5 mL 3 4 Active meloxicam (MOBIC) 7.5 MG tabletIndications :Psoriatic arthritis,Pain in toes of both feet TAKE 1 TABLET TWICE A DAY WITH FOOD 180 tablet 1 5 Active risankizumab-rzaa (SKYRIZI) 150 mg/mL subcutaneous injection penIndications:Ps oriatic arthritis Inject 1 mL (150 mg total) under the skin every 28 days. Inject 1 mL (150 mg total) under the skin every 28 days for 2 doses 1 mL 1 5 Active risankizumab-rzaa (SKYRIZI) 150 mg/mL subcutaneous injection penIndications:Ps oriatic arthritis Inject 1 mL (150 mg total) under the skin once every 12 weeks. 1 mL 3 5 Active Active Problems Problem Noted Date Diagnosed Date Postmenopausal 12/15/2023 Assessment & Plan (04/20/2024 4:54 PM EDT): Proper calcium and vitamin D supplementation. Fall and fracture prevention strategies. Daily weightbearing exercises. Baseline BMD requested-new order provided since she has not scheduled it as previously requested Assessment & Plan (12/15/2023 4:09 PM EDT): Proper calcium and vitamin D supplementation. Fall and fracture prevention strategies. Daily weightbearing exercises. Baseline BMD requested On ustekinumab therapy 08/14/2023 Assessment & Plan (12/17/2024 2:52 PM EDT): I reviewed with her the need for holding Stelara injection if she run fever, feels sick or takes antibiotics. She should complete entire course of antibiotics and wait at least 48 hours after the last dose to make sure that it does not recur before proceeding with Stelara injection. Make sure to inform any new LEAH CALDERON NP about chronic immunosuppression with Stelara particularly in emergency situations. Return for monitoring labs every 3 months-standing orders in [facility]. Assessment & Plan (08/20/2024 2:53 PM EST): I reviewed with her the need for holding Stelara injection if she run fever, feels sick or takes antibiotics. She should complete entire course of antibiotics and wait at least 48 hours after the last dose to make sure that it does not recur before proceeding with Stelara injection. Make sure to inform any new LEAH CALDERON NP about chronic immunosuppression with Stelara particularly in emergency situations. Return for monitoring labs every 3 months-standing orders in [facility]. Assessment & Plan (04/19/2024 3:08 PM EDT): I reviewed with her the need for holding Stelara injection if she run fever, feels sick or takes antibiotics. She should complete entire course of antibiotics and wait at least 48 hours after the last dose to make sure that it does not recur before proceeding with Stelara injection. Make sure to inform any new LEAH CALDERON NP about chronic immunosuppression with Stelara particularly in emergency situations. Return for monitoring labs every 3 months-standing orders in [facility]. Assessment & Plan (12/15/2023 3:34 PM EDT): I reviewed with her the need for holding Stelara injection if she run fever, feels sick or takes antibiotics. She should complete entire course of antibiotics and wait at least 48 hours after the last dose to make sure that it does not recur before proceeding with Stelara injection. Make sure to inform any new LEAH CALDERON [employer] about chronic immunosuppression with Stelara particularly in emergency situations. Return for monitoring labs every 3 months-standing orders in [facility]. Assessment & Plan (08/14/2023 4:03 PM EST): I reviewed with her the need for holding Stelara injection if she run fever, feels sick or takes antibiotics. She should complete entire course of antibiotics and wait at least 48 hours after the last dose to make sure that it does not recur before proceeding with Stelara injection. Make sure to inform any new LEAH CALDERON [employer] about chronic immunosuppression with Stelara particularly in emergency situations. Return for monitoring labs every 3 months-standing orders in [facility]. Flat foot 04/24/2023 Hallux rigidus of right foot 01/02/2023 Hallux rigidus of left foot 01/02/2023 Family history of gout 09/23/2022 Assessment & Plan (10/06/2022 3:23 PM EDT): Keep well-hydrated: 6-8 glasses (8 ounces each) of fluids daily. If serum uric acid returns above 6 mg % follow low purine diet. Pain in toes of both feet 05/27/2022 Assessment & Plan (09/14/2024 6:28 PM EDT): Wear well fitting, supportive shoes. Avoid falls, injuries and overuse. Gentle, regular exercise routine. Keep her body weight as close as possible to ideal range for her height. Assessment & Plan (04/20/2024 4:53 PM EDT): Wear well fitting, supportive shoes. Avoid falls, injuries and overuse. Gentle, regular exercise routine. Keep her body weight as close as possible to ideal range for her height-congratulations on losing 13 pounds from 162 on 12/15/2023 down to 149 today and keep it off. Assessment & Plan (12/15/2023 3:52 PM EDT): Wear well fitting, supportive shoes. Avoid falls, injuries and overuse. Gentle, regular exercise routine. Work on bringing her body weight as close as possible to ideal range for her height. Assessment & Plan (08/14/2023 3:45 PM EST): Wear well fitting, supportive shoes. Avoid falls, injuries and overuse. Gentle, regular exercise routine. Work on bringing her body weight as close as possible to ideal range for her height. Assessment & Plan (09/23/2022 3:26 PM EDT): Wear well fitting, supportive shoes. Avoid falls, injuries and overuse. Gentle, regular exercise routine. Work on bringing her body weight as close as possible to ideal range for her height. Assessment & Plan (06/20/2022 11:43 AM EST): Wear well fitting, supportive shoes. Avoid falls, injuries and overuse. Gentle, regular exercise routine. Work on bringing her body weight as close as possible to ideal range for her height. Dysrhythmia 05/27/2022 Assessment & Plan (09/14/2024 6:28 PM EDT): Keep a diary of episodes of arrhythmia/palpitations and modifying factors. Formal EKG requested Assessment & Plan (06/20/2022 11:42 AM EST): Keep a diary of episodes of arrhythmia/palpitations and modifying factors On SSRI therapy 09/25/2020 Assessment & Plan (09/14/2024 6:27 PM EDT): Monitor for mood swings, increased muscle rigidity and temperature intolerance. Assessment & Plan (04/19/2024 3:08 PM EDT): Monitor for mood swings, increased muscle rigidity and temperature intolerance. Assessment & Plan (12/15/2023 3:34 PM EDT): Monitor for mood swings, increased muscle rigidity and temperature intolerance. Assessment & Plan (08/20/2021 12:47 PM EST): Monitor for mood swings, increased muscle rigidity and temperature intolerance. Assessment & Plan (04/20/2021 9:23 AM EDT): Monitor for mood swings, increased muscle rigidity and temperature intolerance. Assessment & Plan (09/25/2020 10:28 AM EDT): Monitor for mood swings, increased muscle rigidity and temperature intolerance. NSAID long-term use 02/21/2020 Assessment & Plan (12/17/2024 2:52 PM EDT): Take the lowest dose, with least frequency, for shortest time. Remember to take it always with food. Favor topical over oral preparations. Assessment & Plan (08/20/2024 2:53 PM EST): Take the lowest dose, with least frequency, for shortest time. Remember to take it always with food. Favor topical over oral preparations. Assessment & Plan (04/19/2024 3:08 PM EDT): Take the lowest dose, with least frequency, for shortest time. Remember to take it always with food. Favor topical over oral preparations. Assessment & Plan (12/15/2023 3:34 PM EDT): Take the lowest dose, with least frequency, for shortest time. Remember to take it always with food. Favor topical over oral preparations. Assessment & Plan (08/14/2023 3:45 PM EST): Take the lowest dose, with least frequency, for shortest time. Remember to take it always with food. Favor topical over oral preparations. Assessment & Plan (05/14/2023 1:34 PM EST): Take the lowest dose, with least frequency, for shortest time. Remember to take it always with food. Favor topical over oral preparations. Assessment & Plan (12/23/2022 2:35 PM EDT): Take the lowest dose, with least frequency, for shortest time. Remember to take it always with food. Favor topical over oral preparations. Assessment & Plan (09/23/2022 3:26 PM EDT): Take the lowest dose, with least frequency, for shortest time. Remember to take it always with food. Favor topical over oral preparations. Assessment & Plan (05/27/2022 3:45 PM EST): Take the lowest dose, with least frequency, for shortest time. Remember to take it always with food. Favor topical over oral preparations. Assessment & Plan (08/20/2021 12:47 PM EST): Take the lowest dose, with least frequency, for shortest time. Remember to take it always with food. Favor topical over oral preparations. Assessment & Plan (04/20/2021 9:23 AM EDT): Take the lowest dose, with least frequency, for shortest time. Remember to take it always with food. Favor topical over oral preparations. Assessment & Plan (01/11/2021 4:09 PM EDT): Take the lowest dose, with least frequency, for shortest time. Remember to take it always with food. Favor topical over oral preparations. Assessment & Plan (09/25/2020 10:29 AM EDT): Take the lowest dose, with least frequency, for shortest time. Remember to take it always with food. Favor topical over oral preparations. Assessment & Plan (06/05/2020 10:52 AM EST): Take the lowest dose, with least frequency, for shortest time. Remember to take it always with food. Favor topical over oral preparations. Assessment & Plan (04/08/2020 2:28 PM EDT): Take the lowest dose, with least frequency, for shortest time. Remember to take it always with food. Favor topical over oral preparations. Assessment & Plan (02/22/2020 10:26 PM EDT): Take the lowest dose, with least frequency, for shortest time. Remember to take it always with food. Favor topical over oral preparations. Psoriatic arthritis 02/14/2020 Assessment & Plan (12/17/2024 3:15 PM EDT): Markedly improved since starting Stelara in early June 2023 for both skin and joint saleh until August 2024 when it appears losing its benefit. She is interested in switching to a different medication hoping for improved disease control-I provided her with information on Skyrizi that she already read about and is willing to switch provide if insurance approves. She understands that she will not be able to start new medication until March 12, 2025 when she would be due for next dose of Skyrizi. Try to gently taper frequency of meloxicam from 7.5 mg twice daily to alternating 2 times daily every other day with once daily Provided she has no worsening further taper to alternating once daily with no meloxicam if possible and hold it periodically as tolerated. Provided she has no worsening get labs monitoring safety and efficacy of current therapy prior to visit in 4.5 months . She is free to call with any questions or problems in the interim. Assessment & Plan (08/20/2024 2:52 PM EST): Markedly improved since starting Stelara in early June 2023 for both skin and joint saleh. Carefully continue current regimen of every 12 weeks subcutaneous Stelara and gently taper frequency of meloxicam from 7.5 mg twice daily to alternating 2 times daily every other day with once daily Provided she has no worsening further taper to alternating once daily with no meloxicam if possible and hold it periodically as tolerated. Provided she has no worsening get labs monitoring safety and efficacy of current therapy prior to visit in 4 months . She is free to call with any questions or problems in the interim. Assessment & Plan (04/19/2024 3:08 PM EDT): Markedly improved since starting Stelara in early June 2023 for both skin and joint saleh. Carefully continue current regimen of every 12 weeks subcutaneous Stelara and gently taper frequency of meloxicam from 7.5 mg twice daily to alternating 2 times daily every other day with once daily Provided she has no worsening further taper to alternating once daily with no meloxicam if possible and hold it periodically as tolerated. Provided she has no worsening get labs monitoring safety and efficacy of current therapy prior to visit in 4 months . She is free to call with any questions or problems in the interim. Assessment & Plan (12/15/2023 4:10 PM EDT): Markedly improved since starting Stelara in early June 2023 for both skin and joint saleh. Carefully continue current regimen of every 12 weeks subcutaneous Stelara and gently taper frequency of meloxicam from 7.5 mg twice daily to alternating 2 times daily every other day with once daily Provided she has no worsening further taper to alternating once daily with no meloxicam if possible and hold it periodically as tolerated. Provided she has no worsening get labs monitoring safety and efficacy of current therapy prior to visit in 4 months . She is free to call with any questions or problems in the interim. Assessment & Plan (08/14/2023 4:08 PM EST): Markedly improved since starting Stelara in early June 2021 for both skin and joint saleh. Carefully continue current regimen of every 12 weeks subcutaneous Stelara and gently taper frequency of meloxicam from 7.5 mg twice daily to alternating 2 times daily every other day with once daily Provided she has no worsening further taper to alternating once daily with no meloxicam if possible and hold it periodically as tolerated. Provided she has no worsening get labs monitoring safety and efficacy of current therapy prior to visit in 4 months . She is free to call with any questions or problems in the interim. Assessment & Plan (05/16/2023 10:18 AM EST): Since her insurance have changed in December 2022 and she no longer has coverage for Cosentyx she initially believed to have Stelara (ustekinumab) covered by her insurance however it was not a preferred drug so she ended up getting Humira that is covered and feels worse on it than on Cosentyx. She is willing to carefully continue Humira as long as she is not getting intolerable side effects hoping for gradual benefit regarding skin and joint appearance. I have advised her to cool deep projected area of injection with an ice pack for 10-15 minutes and apply an ice pack after injectate he will for an additional 10-15 minutes that frequently reduces the postinjection site reaction. Provided she has no worsening I have asked her to return in 3 months with prior blood work monitoring safety and efficacy of current therapy. She is free to call with any questions or problems in the interim. Assessment & Plan (12/24/2022 8:47 PM EDT): Since her insurance have changed and she no longer has coverage for Cosentyx that she found less and less helpful we decided to switch to preferred biologic modifier by her insurance Stelara (ustekinumab). I provided her with pamphlet on its side effects for review and the reference. New set of labs including TB Gold QuantiFERON requested today. Provided she has no worsening I have asked her to return in 4 months with prior blood work monitoring safety and efficacy of current therapy. She is free to call with any questions or problems in the interim. Assessment & Plan (10/06/2022 3:24 PM EDT): Since she is reporting ongoing and even worsening joint pains while on Cosentyx I provided her with pamphlets on Humira, Simponi and Cimzia to consider as alternatives. For now she decided to continue Cosentyx with meloxicam 7.5 mg twice daily with food. Provided she has no worsening I have asked her to return in 3 months with prior blood work monitoring safety and efficacy of current therapy. I have advised her to call [employer] to check the best insurance option for her. She is free to call with any questions or problems in the interim. Assessment & Plan (05/27/2022 3:44 PM EST): Since she is reporting ongoing and even worsening joint pains while on Cosentyx I provided her with pamphlets on Humira, Simponi and Cimzia to consider as alternatives. For now she decided to continue Cosentyx with meloxicam 7.5 mg twice daily with food. Provided she has no worsening I have asked her to return in 4 months with prior blood work monitoring safety and efficacy of current therapy. I have advised her to call [employer] to check the best insurance option for her. She is free to call with any questions or problems in the interim. Assessment & Plan (08/21/2021 7:26 PM EST): Since she is reporting ongoing and even worsening joint pains while on Cosentyx I provided her with pamphlets on Humira, Simponi and Cimzia to consider as alternatives. For now she decided to continue Cosentyx with meloxicam 7.5 mg twice daily with food. Provided she has no worsening I have asked her to return in 4 months with prior blood work monitoring safety and efficacy of current therapy. I have advised her to call [employer] to check the best insurance option for her. She is free to call with any questions or problems in the interim. Assessment & Plan (04/29/2021 11:45 AM EST): Since she is reporting ongoing and even worsening joint pains while on Cosentyx I provided her with pamphlets on Humira, Simponi and Cimzia to consider as alternatives. I explained to her that there is no way I can forecast which medication will be best suited for her but we can discuss pros and cons based on her readings and questions to me to choose the most appropriate medication for her depending on results of ordered labs and x-rays. For now she decided to continue Cosentyx with meloxicam 7.5 mg twice daily with food. Provided she has no worsening I have asked her to return in 4 months with prior blood work monitoring safety and efficacy of current therapy. I have encouraged her to get yearly influenza vaccine within the next week and 3rd COVID-19 vaccine dose 2 weeks after it. I have advised her to call [employer] to check the best insurance option for her. She is free to call with any questions or problems in the interim. Assessment & Plan (01/11/2021 4:09 PM EDT): Since she is reporting ongoing and even worsening joint pains while on Cosentyx I provided her with pamphlets on Humira, Simponi and Cimzia to consider as alternatives. I explained to her that there is no way I can forecast which medication will be best suited for her but we can discuss pros and cons based on her readings and questions to me to choose the most appropriate medication for her depending on results of ordered labs and x-rays. Assessment & Plan (09/25/2020 10:28 AM EDT): Since she is reporting ongoing and even worsening joint pains while on Cosentyx I provided her with pamphlets on Humira, Simponi and Cimzia to consider as alternatives. I explained to her that there is no way I can forecast which medication will be best suited for her but we can discuss pros and cons based on her readings and questions to me to choose the most appropriate medication for her depending on results of ordered labs and x-rays. Assessment & Plan (06/05/2020 10:52 AM EST): Since she is reporting ongoing and even worsening joint pains while on Cosentyx I provided her with pamphlets on Humira, Simponi and Cimzia to consider as alternatives. I explained to her that there is no way I can forecast which medication will be best suited for her but we can discuss pros and cons based on her readings and questions to me to choose the most appropriate medication for her depending on results of ordered labs and x-rays. Assessment & Plan (04/08/2020 2:45 PM EDT): I have asked her to get monitoring labs today. She was provided with pamphlets on Humira, Simponi and Cimzia to consider as alternatives to losing efficacy Cosentyx.. I explained to her that there is no way I can forecast which medication will be best suited for her but we can discuss pros and cons based on her readings and questions to me to choose the most appropriate medication for her . She decided to try another NSAID first in place of indomethacin: Meloxicam 7.5 mg twice daily for 3 days then if able to take 1 day 7.5 mg twice daily alternating with another day 7.5 mg daily. Call if problems or questions Assessment & Plan (02/22/2020 10:25 PM EDT): Since she is reporting ongoing and even worsening joint pains while on Cosentyx I provided her with pamphlets on Humira, Simponi and Cimzia to consider as alternatives. I explained to her that there is no way I can forecast which medication will be best suited for her but we can discuss pros and cons based on her readings and questions to me to choose the most appropriate medication for her depending on results of ordered labs and x-rays. Assessment & Plan (02/14/2020 10:17 PM EDT): Since she is reporting ongoing and even worsening joint pains while on Cosentyx I provided her with pamphlets on Humira, Simponi and Cimzia to consider as alternatives. I explained to her that there is no way I can forecast which medication will be best suited for her but we can discuss pros and cons based on her readings and questions to me to choose the most appropriate medication for her depending on results of ordered labs and x-rays. LUIS FERNANDO positive 02/14/2020 Assessment & Plan (01/11/2021 4:15 PM EDT): I reviewed with Ratna that highly elevated LUIS FERNANDO may be associated with systemic lupus erythematosus although less likely it may also be drug-induced by Cosentyx. She is at risk for getting systemic lupus erythematosus given her positive family history of lupus in her 85-year-old mother. I requested more details about her mother's diagnosis and treatment. Upon review of labs from initial appointment the week ago except for isolated high LUIS FERNANDO there are no additional abnormalities to support systemic lupus erythematosus at this time I educated Ratna to keep up-to-date with age-appropriate screenings and preventive strategies. Eat well-balanced nutritionally diet. Keep well-hydrated. Avoid sunburns. Regular, gentle exercising as tolerated. Avoid sick contacts, falls or injuries. Assessment & Plan (04/08/2020 2:26 PM EDT): I reviewed with Ratna that highly elevated LUIS FERNANDO may be associated with systemic lupus erythematosus although less likely it may also be drug-induced by Cosentyx. She is at risk for getting systemic lupus erythematosus given her positive family history of lupus in her 85-year-old mother. I requested more details about her mother's diagnosis and treatment. Upon review of labs from initial appointment the week ago except for isolated high LUIS FERNANDO there are no additional abnormalities to support systemic lupus erythematosus at this time I educated Ratna to keep up-to-date with age-appropriate screenings and preventive strategies. Eat well-balanced nutritionally diet. Keep well-hydrated. Avoid sunburns. Regular, gentle exercising as tolerated. Avoid sick contacts, falls or injuries. Assessment & Plan (02/22/2020 10:24 PM EDT): I reviewed with Ratna that highly elevated LUIS FERNANDO may be associated with systemic lupus erythematosus although less likely it may also be drug-induced by Cosentyx. She is at risk for getting systemic lupus erythematosus given her positive family history of lupus in her 85-year-old mother. I requested more details about her mother's diagnosis and treatment. Upon review of labs from initial appointment the week ago except for isolated high LUIS FERNANDO there are no additional abnormalities to support systemic lupus erythematosus at this time I educated Ratna to keep up-to-date with age-appropriate screenings and preventive strategies. Eat well-balanced nutritionally diet. Keep well-hydrated. Avoid sunburns. Regular, gentle exercising as tolerated. Avoid sick contacts, falls or injuries. Get the yearly influenza vaccine by mid March 2020. Assessment & Plan (02/14/2020 10:11 PM EDT): I reviewed with Ratna that highly elevated LUIS FERNANDO may be associated with systemic lupus erythematosus although less likely it may also be drug-induced by Cosentyx. I took the liberty of getting more specific tests to clarify it. She is at risk for getting systemic lupus erythematosus given her positive family history of lupus in her 85-year-old mother. I requested more details about her mother's diagnosis and treatment. Chronic fatigue 02/14/2020 Assessment & Plan (02/14/2020 10:15 PM EDT): Balance rest and activity. Keep well-hydrated. Follow age-appropriate screenings and preventive strategies. Gentle, regular exercise. Well-balanced nutritionally diet. Daily sun protection. Avoid falls, injuries, overuse and sick contacts. Dry eyes 02/14/2020 Assessment & Plan (02/14/2020 10:14 PM EDT): Continue eyedrops as prescribed. Consider formal cheer excretion measurement on the next ophthalmologic checkup and special staining to check for corneal abrasions. Weight gain 02/14/2020 Assessment & Plan (02/14/2020 10:11 PM EDT): To make sure that she has no thyroid dysfunction I requested TSH Hypercalcemia 02/14/2020 Depressive disorder 12/07/2012 Overview (08/13/2014): Depressive disorder Assessment & Plan (04/05/2020 9:38 AM EDT): Continue antidepressive treatment exactly as prescribed and follow closely with prescribing physician. Regular relaxation/meditation sessions. Assessment & Plan (02/22/2020 10:26 PM EDT): Continue antidepressive treatment exactly as prescribed and follow closely with prescribing physician. Regular relaxation/meditation sessions. Assessment & Plan (02/14/2020 10:14 PM EDT): Continue antidepressive treatment exactly as prescribed and follow closely with prescribing physician. Regular relaxation/meditation sessions. Hypertensive disorder 12/07/2012 Overview (08/13/2014): Hypertension Psoriasis 09/25/2010 Overview (08/13/2014): Psoriasis Resolved Problems Problem Noted Date Diagnosed Date Resolved Date Adalimumab (Humira) long-term use 05/14/2023 08/14/2023 Assessment & Plan (05/16/2023 10:19 AM EST): Make sure to hold Humira whenever running fever, feeling sick or taking antibiotics. Complete entire course of antibiotics and wait at least 48 hours before restarting Humira. Make sure to inform any new MD, PA, FIELD INSTALLER about chronic immunosuppression particularly in emergency situations. Long-term current use of secukinumab 04/05/2020 08/14/2023 Assessment & Plan (12/24/2022 8:49 PM EDT): Due to change of insurance coverage and weaning benefit from Cosentyx she has to switch to a different biologic modifier-Stelara (ustekinumab) that is preferred by her insurance. Make sure to hold injection if feeling sick, running fever or taking antibiotics. Complete entire course of antibiotics and wait at least 48 hours after the last dose of antibiotic before restarting Cosentyx. Make sure to inform any new LEAH CALDERON, FIELD INSTALLER about chronic immunosuppression particularly in emergency situations. Call if problems or questions. Assessment & Plan (09/23/2022 3:25 PM EDT): Continue injections every 4 weeks as prescribed. Make sure to hold injection if feeling sick, running fever or taking antibiotics. Complete entire course of antibiotics and wait at least 48 hours after the last dose of antibiotic before restarting Cosentyx. Make sure to inform any new LEAH CALDERON, FIELD INSTALLER about chronic immunosuppression with Cosentyx particularly in emergency situations. Call if problems or questions. Assessment & Plan (05/27/2022 3:45 PM EST): Continue injections every 4 weeks as prescribed. Make sure to hold injection if feeling sick, running fever or taking antibiotics. Complete entire course of antibiotics and wait at least 48 hours after the last dose of antibiotic before restarting Cosentyx. Make sure to inform any new LEAH CALDERON, FIELD INSTALLER about chronic immunosuppression with Cosentyx particularly in emergency situations. Call if problems or questions. Assessment & Plan (08/20/2021 12:47 PM EST): Continue injections every 4 weeks as prescribed. Make sure to hold injection if feeling sick, running fever or taking antibiotics. Complete entire course of antibiotics and wait at least 48 hours after the last dose of antibiotic before restarting Cosentyx. Make sure to inform any new LEAH CALDERON, FIELD INSTALLER about chronic immunosuppression with Cosentyx particularly in emergency situations. Call if problems or questions. Assessment & Plan (04/20/2021 9:24 AM EDT): Continue injections every 4 weeks as prescribed. Make sure to hold injection if feeling sick, running fever or taking antibiotics. Complete entire course of antibiotics and wait at least 48 hours after the last dose of antibiotic before restarting Cosentyx. Make sure to inform any new LEAH CALDERON, FIELD INSTALLER about chronic immunosuppression with Cosentyx particularly in emergency situations. Call if problems or questions. Assessment & Plan (01/11/2021 4:09 PM EDT): Continue injections every 4 weeks as prescribed. Make sure to hold injection if feeling sick, running fever or taking antibiotics. Complete entire course of antibiotics and wait at least 48 hours after the last dose of antibiotic before restarting Cosentyx. Make sure to inform any new LEAH CALDERON, FIELD INSTALLER about chronic immunosuppression with Cosentyx particularly in emergency situations. Call if problems or questions. Assessment & Plan (09/25/2020 10:29 AM EDT): Continue injections every 4 weeks as prescribed. Make sure to hold injection if feeling sick, running fever or taking antibiotics. Complete entire course of antibiotics and wait at least 48 hours after the last dose of antibiotic before restarting Cosentyx. Make sure to inform any new LEAH CALDERON, FIELD INSTALLER about chronic immunosuppression with Cosentyx particularly in emergency situations. Call if problems or questions. Assessment & Plan (06/05/2020 10:53 AM EST): Continue injections every 4 weeks as prescribed. Make sure to hold injection if feeling sick, running fever or taking antibiotics. Complete entire course of antibiotics and wait at least 48 hours after the last dose of antibiotic before restarting Cosentyx. Make sure to inform any new LEAH CALDERON, FIELD INSTALLER about chronic immunosuppression with Cosentyx particularly in emergency situations. Call if problems or questions. Assessment & Plan (04/08/2020 2:29 PM EDT): Continue injections every 4 weeks as prescribed. Make sure to hold injection if feeling sick, running fever or taking antibiotics. Complete entire course of antibiotics and wait at least 48 hours after the last dose of antibiotic before restarting Cosentyx. Make sure to inform any new LEAH CALDERON, FIELD INSTALLER about chronic immunosuppression with Cosentyx particularly in emergency situations. Call if problems or questions. Haylie 09/25/2010 08/20/2021 Overview (08/13/2014): Haylie Encounters Date Type Department Care Team Description 01/04/2025 11:15 AM EDT Hospital Encounter [facility], X-Ray - [place] [address] [place] [id number] Shiloh Gallagher MD Discharge Disposition: Home or Self Care 01/04/2025 11:15 AM EDT Hospital Encounter [facility] [address] [place] [address] Shiloh Gallagher MD Discharge Disposition: Home or Self Care 12/22/2024 Telephone [facility] Rheumatology [address] [place] [address] Shiloh Gallagher MD Labs 12/21/2024 Orders Only [facility] Rheumatology [address] [place] [address] Shiloh Gallagher MD Need for hepatitis B screening test (Primary Dx); Need for hepatitis C screening test; Psoriatic arthritis; On ustekinumab therapy 12/20/2024 Documentation [facility] [address] [place] [id number] Kizzy Souza [facility] 12/17/2024 2:30 PM EDT Office Visit [facility] Rheumatology [address] [place] [address] [place] [address] Shiloh Gallagher MD Psoriatic arthritis (Primary Dx); On ustekinumab therapy; NSAID long-term use 12/16/2024 11:25 AM EDT - 12/16/2024 11:59 PM EDT Hospital Encounter [facility] [address] [place] [address] Shiloh Gallagher MD Discharge Disposition: Home or Self Care from Last 3 Months Family History Medical History Relation Comments Hypertension Father Stroke Father Prostate cancer Maternal Grandfather Diabetes Maternal Grandmother Depression Mother Hyperlipidemia Mother Lupus Mother Prostate cancer Paternal Grandfather Depression Sister Hypertension Sister Relation Status Comments Father Maternal Grandfather Maternal Grandmother Mother Alive Paternal Grandfather Sister Social History Tobacco Use Types Packs/Day Years Used Date Smoking Tobacco: Never Smokeless Tobacco: Never Tobacco Cessation:Counseling Given: Not Answered Alcohol Use Standard Drinks/Week Comments Yes 0 (1 standard drink = 0.6 oz pur e alcohol) rarely Education Answer Date Recorded Are you interested in more education? Not on bulmaro e 10/18/2022 Are you concerned about learning? Not on file 10/18/2022 No 10/18/2022 No 10/18/2022 Digital Access Answer Date Recorded No 11/18/2022 No 11/18/2022 Reliable internet access at home? Not on file 11/18/2022 Device with a working camera? Not on file Comments Unknown Sex and Gender Information Value Date Recorded Sex Assigned at Not on file Legal Sex Female 8:35 AM EST Gender Identity Not on file Sexual Orientation Not on file Last Filed Vital Signs Vital Sign Reading Time Taken Comments Blood Pressure 114/68 12/17/2024 2:23 PM EDT Pulse 77 12/17/2024 2:23 PM EDT Temperature 37 C (98.6 F) 06/05/2020 10:24 AM EST Respiratory Rate 16 12/23/2022 1:58 PM EDT Oxygen Saturation 97% 12/17/2024 2:23 PM EDT Inhaled Oxygen Concentration - - Weight 72.8 kg (160 lb 9.6 oz) 12/17/2024 2:23 P M EDT Height 160 cm (5' 3 ) 12/17/2024 2:23 PM EDT Body Mass Index 28.45 12/17/2024 2:23 PM EDT Plan of Treatment Upcoming Encounters Date Type Department Care Team (Late st Contact Info) Description 04/22/2025 2:30 PM EDT Office Visit [facility] Rheumatology [address] [place] [address] [place] [address] Shiloh Gallagher MD [address] [place] [address], [address] [place] [address] Health Maintenance Due Date Last Done Comments LIPID PANEL 1966 DEPRESSION SCREENING 1978 HIV ONE-TIME SCREENING (18-65 YEARS) 1984 PAP SMEAR 1987 MAMMOGRAM 2006 COLOGUARD 2011 COLONOSCOPY 2011 COLORECTAL CANCER SCREENING 2011 FIT TEST 2011 FOBT 2011 SIGMOIDOSCOPY 2011 VIRTUAL COLONOSCOPY 2011 PNEUMOCOCCAL VACCINES (50+ years) (2 of 2 - PCV) 02/16/2020 02/15/2019 INFLUENZA VACCINE (#1) 2025 , 03/20/2020, 07/22/2019, Additional history exists COVID-19 VACCINE ( - 2024- season) 2025 06/09/2021, 11/03/2020, 09/30/2020 BLOOD PRESSURE 06/18/2025 12/17/2024 CREATININE LEVEL 12/16/2025 12/16/2024, , 04/09/2024, Additional history exists POTASSIUM LEVEL 12/16/2025 12/16/2024, 07/25, 04/09/2024, Additional history exists SCREENING FOR DIABETES 12/17/2027 12/16/2024 Adult Td,Tdap Booster 01/06/2028 01/05/2018 ZOSTER VACCINES Completed 11/02/2018, 06/30/2018 SMOKING STATUS SCREENING (Once After 26 Yrs) Completed 12/17/2024 HEPATITIS C SCREENING Completed 01/04/2025 HEPATITIS A VACCINES Aged Out No long er eligible based on patient's age to complete this topic HIB VACCINES Aged Out No longer eligi ble based on patient's age to complete this topic MENINGOCOCCAL VACCINES (ACWY) Aged Out No longer eligible based on patient's age to complete this topic MENINGOCOCCAL VACCINES (B) Aged Out N o longer eligible based on patient's age to complete this topic Medical Devices Not on file Procedures Procedure Name Priority Date/Time Associated Diagnosis Comments HC TB CELL MEDIATED ANTIGN RESPNSE GAMMA INTERFERON Routine 01/04/2025 11:32 AM EDT Psoriatic arthritis On ustekinumab therapy HEPATITIS B SURFACE ANTIBODY Routine 01/04/2025 11:32 AM EDT Need for hepatitis B screening test On ustekinumab therapy HEPATITIS C ANTIBODY, QUALITATIVE Routine 01/04/2025 11:32 AM EDT Need for hepatitis C screening test On ustekinumab therapy XR HAND 3 OR MORE VIEWS (BILATERAL) Routine 01/04/2025 11:24 AM EDT Psoriatic arthritis COMPREHENSIVE METABOLIC PANEL Routine 12/16/2024 11:54 AM EDT Psoriatic arthritis On ustekinumab therapy NSAID long-term use C-REACTIVE PROTEIN Routine 12/16/2024 11 :54 AM EDT Psoriatic arthritis On ustekinumab therapy NSAID long-term use SEDIMENTATION RATE (ESR) Routine 12/16/2024 11:54 AM EDT Psoriatic arthritis On ustekinumab therapy NSAID long-term use CBC AND DIFFERENTIAL Routine 12/16/2024 11:54 AM EDT Psoriatic arthritis On ustekinumab therapy NSAID long-term use from Last 3 Months Results * Quantiferon-TB Gold (01/04/2025 11:32 AM EDT) [facility] QuantiFERON-TB Gold Negative Negative [facility] [place] Comment: (NOTE) No interferon-gamma response to M. tuberculosis antigens was detected. Latent infection with M. tuberculosis is unlikely. A single negative result does not exclude infection with M. tuberculosis. In patients at high risk for M.tuberculosis infection, a second test should be considered in accordance with the 2017 ATS/IDSA/CDC Clinical Practice Guidelines for Diagnosis of Tuberculosis in Adults and Children [Lewinsohn DM et. al. Clin. Infect. Dis. 2017;64(2):111-115]. The reference range for the 'TB1 Ag minus Nil Result' and 'TB2 Ag minus Nil Result' is an Interferon-gamma level <0.35 IU/mL. TB1 Ag minus Nil 0.01 IU/mL [facility] TB2 Ag minus Nil 0.00 IU/mL [facility] Mitogen minus Nil 9.97 IU/mL [facility] Nil Result 0.03 IU/mL [facility] [place] Blood 01/04/2025 11:3 2 AM EDT 01/04/2025 11:43 AM EDT Shiloh Gallagher MD LAB BLOOD ORDERABLES Fin al Result Performing Organization Address [facility] Co de Phone Number [facility] [address] [place] [address] * Hepatitis C antibody, qualitative (01/04/2025 11:32 AM EDT) HCV NON-REACTIV E NON-REACTI VE [facility] Blood 01/04/2025 11:3 2 AM EDT 01/04/2025 11:43 AM EDT Shiloh Gallagher MD LAB BLOOD ORDERABLES Fin al Result Performing Organization Address [facility] Co de Phone Number [address] [address] * Hepatitis B surface antibody (01/04/2025 11:32 AM EDT) HBV SURFACE ANTIBODY Negative [facility] Comment: Unvaccinated: Negative Vaccinated: Positive Blood 01/04/2025 11:3 2 AM EDT 01/04/2025 11:43 AM EDT Shiloh Gallagher MD LAB BLOOD ORDERABLES Fin al Result Performing Organization Address [facility] Co de Phone Number [address] [address] * XR HAND 3 OR MORE VIEWS (BILATERAL) (01/04/2025 11:24 AM EDT) Anatomical Region Laterality Modality Hand Left Computed Radiogr aphy 01/04/2025 2:57 PM EDT Impressions 01/07/2025 10:13 AM EDT No specific evidence of inflammatory arthritis. 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 Severe bilateral radiolunate degenerative changes. Narrative 01/07/2025 10:13 AM EDT XR HAND 3 OR MORE VIEWS (BILATERAL) Referring clinician's provided indication for this examination in Epic: Pain; swelling,stiffness; psoriatic arthritis COMPARISON: None FINDINGS: Left hand: No acute fracture or dislocation. No soft tissue swelling. Widening of the scapholunate interval likely representing a chronic scapholunate ligament tear. Severe radiolunate degenerative changes. Moderate first carpometacarpal and triscaphe degenerative changes. Right hand: No acute fracture or dislocation. No soft tissue swelling. Severe radiolunate degenerative changes. Mild first carpometacarpal and triscaphe degenerative changes. Procedure Note Alma Bryson MD - 01/07/2025 XR HAND 3 OR MORE VIEWS (BILATERAL) Referring clinician's provided indication for this examination in [facility]:Pain; swelling,stiffness; psoriatic arthritis COMPARISON: None FINDINGS: Left hand: No acute fracture or dislocation. No soft tissue swelling.Widening of the scapholunate interval likely representing a chronicscapholunate ligament tear. Severe radiolunate degenerative changes.Moderate first carpometacarpal and triscaphe degenerative changes. Right hand: No acute fracture or dislocation. No soft tissue swelling.Severe radiolunate degenerative changes. Mild first carpometacarpal andtriscaphe degenerative changes. IMPRESSION: No specific evidence of inflammatory arthritis. Widening of the scapholunate interval in the left wrist, likelyrepresenting a chronic scapholunate ligament tear. Severe bilateral radiolunate degenerative changes. us Shiloh Gallagher MD IMG XR UPPER EXTREMITY F inal Result * Comprehensive metabolic panel (12/16/2024 11:54 AM EDT) SODIUM 139 133 - 146 mmol/L [facility] POTASSIUM 4.6 3.3 - 5.1 mmol/L [facility] CHLORIDE 103 96 - 108 mmol/L [facility] CO2 26 21 - 35 mmol/L [facility] BUN 16 6 - 19 mg/dL [facility] CREATININE 0.60 0.5 - 1.5 mg/dL [facility] GLUCOSE 94 70 - 99 mg/dL [facility] ALBUMIN 4.1 3.9 - 4.8 g/dL [facility] TOTAL PROTEIN 7.0 6.5 - 8.0 g/dL [facility] CALCIUM 10.2 8.4 - 10.3 mg/dL [facility] ALKALINE PHOSPHATASE 59 39 - 117 U/L [facility] TOTAL BILIRUBIN 0.3 0.0 - 1.2 mg/dL [facility] AST 21 0 - 37 U/L [facility] ALT 15 0 - 40 U/L [facility] GLOBULIN 2.9 1 - 4.8 g/dL [facility] EGFR 104 >59 mL/min/1.7 3m2 [facility] Comment:Estimated glomerular filtration rate calculated using the CKD-EPI refit equation. ANION GAP 15 10 - 20 mmol/L [facility] Blood 12/16/2024 11:5 4 AM EDT 12/16/2024 12:09 PM EDT Shiloh Gallagher MD LAB BLOOD ORDERABLES Fin al Result Performing Organization Address City/[facility]/ZIP Co de Phone Number [address] [address] * Sedimentation rate (ESR) (12/16/2024 11:54 AM EDT) ESR 8 0 - 30 mm/h [facility] Blood 12/16/2024 11:5 4 AM EDT 12/16/2024 12:09 PM EDT Shiloh Gallagher MD LAB BLOOD ORDERABLES Fin al Result [address] [address] * CBC and differential (12/16/2024 11:54 AM EDT) WBC 5.37 4.00 - 11.00 K/uL [facility] RBC 4.62 4.00 - 5.20 M/uL [facility] HGB 14.3 12.0 - 16.0 g/dL [facility] HCT 42.4 36.0 - 46.0 % [facility] PLT 255 150 - 450 K/uL [facility] MCV 91.8 80.0 - 100.0 fL [facility] MCH 31.0 27.0 - 31.0 pg [facility] MCHC 33.7 32.0 - 36.0 g/dL [facility] RDW 12.9 11.5 - 14.5 % [facility] MPV 9.3 8.4 - 12.0 fL [facility] NRBC 0.00 0.00 /100 WBCs [facility] ABSOLUTE NRBC 0.00 0.00 K/uL [facility] DIFF METHOD Auto [facility] NEUTS 63.2 48.0 - 76.0 % [facility] LYMPHS 25.7 18.0 - 41.0 % [facility] MONOS 8.6 4.0 - 11.0 % [facility] EOS 1.7 0.0 - 5.0 % [facility] BASOS 0.6 0.0 - 1.5 % [facility] Granulocytes, immature (%) 0.2 0.0 - 0.9 % [facility] ABSOLUTE NEUTS 3.40 1.92 - 7.60 K/uL [facility] ABSOLUTE LYMPHS 1.38 0.72 - 4.10 K/uL [facility] ABSOLUTE MONOS 0.46 0.16 - 1.10 K/uL [facility] ABSOLUTE EOS 0.09 0.00 - 0.50 K/uL [facility] ABSOLUTE BASOS 0.03 0.00 - 0.15 K/uL [facility] Granulocytes, immature 0.01 0.00 - 0.09 K/uL [facility] Blood 12/16/2024 11:5 4 AM EDT 12/16/2024 12:09 PM EDT us Shiloh Gallagher MD LAB BLOOD ORDERABLES Fin al Result [facility] [address] [place] [address] * (ABNORMAL) C-Reactive Protein (12/16/2024 11:54 AM EDT) C REACTIVE PROTEIN 5.1(H) 0.0 - 4.0 mg/L [facility] Blood 12/16/2024 11:5 4 AM EDT 12/16/2024 12:09 PM EDT us Shiloh Gallagher MD LAB BLOOD ORDERABLES Fin al Result [facility] [address] [place] [address] from Last 3 Months Insurance Take the Interview [address] [place] [address] Take the Interview [address] [place] [address] [employer] [address] [place] [address] [employer] [place] [address] [place] [place] [address] [employer] [facility] DIRECT Care Teams 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 It is not the complete legal health record.[facility]
--- OUTSIDE RECORDS SUMMARY | 2025-03-08 11:54 | XMS_ITS | Patient Health Record ---
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 Name Role Phone Deborah Fabian Unavailable [phone] Allergies No Known Allergies Results Component Value Reference Range Notes T pallidum Screening [place] -[id number] Reviewed date:09/30/2024 05:42:10 PM Interpretation:Non-reactive Performing Lab:[facility] [place], [address], [address], [place], Phone - [phone], Director - [facility] Notes/Report: Clinical Information:SRC: URINE T pallidum Antibodies Non Reactive Non Reactive HIV Ab/p24 Ag with Reflex-[id number] Reviewed date:09/30/2024 05:41:55 PM Interpretation:Non-reactive Performing Lab:[facility] [place], [address], [address], [place], Phone - [phone], Director - [facility] Notes/Report: Clinical Information:SRC: URINE HIV Ab/p24 Ag Screen Non Reactive Non Reactive HIV-1/HIV-2 antibodies and HIV-1 p24 antigen were NOT detected. There is no laboratory evidence of HIV infection. HIV Negative Chlamydia/GC Amplification-[id number] Reviewed date:09/30/2024 05:41:27 PM Interpretation:Negative Performing Lab:[facility] [place], [address], [address], [place], Phone - [phone], Director - [facility] Notes/Report: Clinical Information:SRC: URINE Chlamydia trachomatis, KAYKAY Negative Negative Neisseria gonorrhoeae, KAYKAY Negative Negative Ct/GC KAYKAY, Pharyngeal-[id number] Reviewed date:09/30/2024 05:41:12 PM Interpretation:Negative Performing Lab:[facility] [place], [address], [address], [place], Phone - [phone], Director - [facility] Notes/Report: Clinical Information:SRC: URINE C. trachomatis, KAYKAY, Pharyn Negative Negative N. gonorrhoeae, KAYKAY, Pharyn Negative Negative HCV Antibody-[id number] Reviewed date:09/30/2024 05:41:41 PM Interpretation:Non-reactive Performing Lab:[facility] [place], [address], [address], [place], Phone - [phone], Director - [facility] Notes/Report: Clinical Information:SRC: URINE Hep C Virus Ab Non Reactive Non Reactive HCV antibody alone does not differentiate between previously resolved infection and active infection. Equivocal and Reactive HCV antibody results should be followed up with an HCV RNA test to support the diagnosis of active HCV infection. Reason For Referral No Information Medications Medication SIG (Take, Route, Fr equency, Duration) Notes Start Date End Date Status Meloxicam Active Vitamin D Active rOPINIRole HCl Activ e Lisinopril Active Stelara Active Social History Sex Assigned At : Social History Observation Description Sex Assigned At Female Social History HIV Risk Assessment Social Info Question Answer Notes Additional Questions Is an HIV Risk Assessment being c onducted? Yes Have you been tested for HIV before? Yes Did you have a blood transfusion prior to 1985? No Do you have an unlicensed body piercing or tattoo? No Reproductive Life Plan: Social Info Question Answer Notes Reproductive Life Plan: Do you want to h ave children? Unknown/Not Reported Human Trafficking: Social Info Question Answer Notes Human Trafficking Experienced: No PrEP for HIV: Social Info Question Answer Notes PrEP for HIV Is the client intere [place] in beginning/continuing PrEP for HIV? No Sexual History: Social Info Question Answer Notes Sexual History: Sexual History Reviewed: Partner s, Practices, Protection/Past STIs, Prevention of , ___ Currently sexually active? No When was the last time you were sexually active? 09/21/2022 2 partners since divorce 2020, tested 2020 When you are sexually active, who are your partners? Men Your sexual activities include: oral intercourse, vaginal intercourse Do you use condoms? Yes Condoms are used: occasionally Counseling Provided: Social Info Question Answer Notes Counseling Provided The client was couns eled on the following topics at this visit: STIs, Condom Use Please indicate the length o f time, in minutes, that counseling was provided. 10 Counseling Was Provided By: jonn Drugs/Alcohol: Social Info Question Answer Notes Drug/Alcohol Use Do you or have you used drugs? Yes, c urrently occasional cannabis Do you or have you used alcohol? Yes, currently occasional Food Access: Social Info Question Answer Notes Food Access The Client's current access to food is Secure Food Access Relationships: Social Info Question Answer Notes Relationships Has the client exper ienced any of the following: Client has never experienced harmful relationships Housing Social Info Question Answer Notes Housing The client's current living situation is: stable housing Tobacco Use: Social Info Question Answer Notes Tobacco Use: Tobacco Smoking Status Never smoker Vital Signs Blood pressure diastolic 80 mm Hg 09/28/2024 Blood pressure systolic 150 mm Hg 09/28/2024 Encounters Encounter Location Date Provider Diagnosis [facility] [address] [place], [place] [id number] 09/28/2024 Deborah Fabian Encounter for screening for infections with a predominantly sexual mode of transmission Z11.3 ; Counseling, unspecified Z71.9 and Encounter for screening for human immunodeficiency virus [HIV] Z11.4 Assessments Encounter Date Diagnosis (ICD Code) Assessment Notes Treatment Notes Treatment Clinical Notes Section Notes 09/28/2024 Encounter for screening for infections with a predominantly sexual mode of transmission (ICD-10 - Z11.3) Discussed STI risks, screenings that are available through [facility] and safe sex. Clt aware of lab processing times and how to view results on portal and how positive results will be communicated. All questions and concerns addressed. RTC prn. Spent 15 minutes doing the following: Chart Prep Obtaining/r eviewing history Counseling/ Coordinatio n of Care Documenting the visit Educating the patient Ordering medication/ test/proced ures New Patient: [id number] 15 Minutes 09/28/2024 Counseling, unspecified (ICD-10 - Z71.9) Spent 15 minutes doing the following: Chart Prep Obtaining/r eviewing history Counseling/ Coordinatio n of Care Documenting the visit Educating the patient Ordering medication/ test/proced ures New Patient: [id number] 15 Minutes 09/28/2024 Encounter for screening for human immunodeficiency virus [HIV] (ICD-10 - Z11.4) Spent 15 minutes doing the following: Chart Prep Obtaining/r eviewing history Counseling/ Coordinatio n of Care Documenting the visit Educating the patient Ordering medication/ test/proced ures New Patient: [id number] 15 Minutes Plan Of Treatment No Information Insurance Providers Payer Name Payer Address Payer Phone Subscriber Number Group Number Insured Name Patient Relationship to Insured Coverage Start Date Coverage End Date [facility] [address] [place] [id number] Ratna Styles Self - patient is the insured Medical (General) History Medical History History ICD Code HBP Seasonal depression, anxiety
== END 2025-03-08 11:00 | disposition home or self-care (01) ==
LOC: HO.HMCC 09:24
PROVIDERS: PCP Internal Medicine; Visit Provider Internal Medicine
DX: Z23 Encounter for immunization (principal)

== ENCOUNTER → 2025-03-08 09:23 | Outpatient (BNVA) | payer OTHER, SELFPAY | PROVIDERS: PCP Internal Medicine; Visit Provider Internal Medicine | DX: Z00.01 Encounter for general adult medical examination with abnormal findings (principal); I10 Essential (primary) hypertension; F32.A Depression, unspecified; L40.50 Arthropathic psoriasis, unspecified; G25.81 Restless legs syndrome; L71.9 Rosacea, unspecified; Z23 Encounter for immunization | CPT/HCPCS: 90471; 90656; 96127; 99396 ==